=== PATIENT | male | born 1980 | race Caucasian/White ===

== ENCOUNTER 2018-02-06 18:26 | Emergency (ER) | payer SELFPAY ==
[~2018-02-06] VITALS: Ht 172.7 cm; Wt 74.4 kg
[2018-02-06 18:31] VITALS: BP 136/84; Ht 172.7 cm; Wt 74.4 kg
== END 2018-02-06 21:56 | disposition left against medical advice (07) ==
LOC: ED 18:26
DX: Z53.21 Procedure and treatment not carried out due to patient leaving prior to being seen by health care provider (principal)